=== PATIENT | female | born 1965 | race Caucasian/White ===

== ENCOUNTER 2021-04-17 11:16 | Outpatient (REF) | payer MEDICAID, SELFPAY ==
--- NOTE | ~2021-04-17 | XR_ITS ---
EXAMINATION: XR CERVICAL SPINE CLINICAL INFORMATION: Neck pain COMPARISON: None TECHNIQUE: 6 views of the cervical spine, including bilateral oblique views, were obtained. FINDINGS: Bone alignment is normal. No fracture or dislocation is seen. There is degenerative spondylosis and degenerative disc disease from C4-C5 to C6-C7. There is right-sided neuroforaminal narrowing from bony osteophyte from C4-C5 to C6-C7. There is left-sided neuroforaminal narrowing from bony osteophyte at C3-C4. Prevertebral soft tissues are normal. XR/XR cervical spine min 6V IMPRESSION: Degenerative changes.
--- NOTE | ~2021-04-17 | XR_ITS ---
EXAMINATION: XR SHOULDER, LEFT CLINICAL INFORMATION: Pain COMPARISON: None TECHNIQUE: AP external rotation, Grashey, scapular Y, and axillary views of the left shoulder. FINDINGS: The bones and soft tissues are normal. No fracture. Glenohumeral and acromioclavicular alignment is anatomic with normal joint space. No abnormal soft tissue calcifications. XR/XR shoulder LT min 2V IMPRESSION: Normal left shoulder.
--- NOTE | ~2021-04-17 | XR_ITS ---
EXAMINATION: XR HIP, RIGHT CLINICAL INFORMATION: Right hip pain. COMPARISON: None TECHNIQUE: Two views of the right hip. FINDINGS: There is severe right hip arthritis with joint space narrowing and osteophyte formation. The right iliac bone is normal-appearing. Peripherally this appears slightly lucent. More centrally this appears heterogeneous in attenuation with lucent and sclerotic areas.. Some of this may be artifactual due to overlying bowel gas. Follow-up pelvic x-ray recommended. Soft tissues about the hip are unremarkable. XR/XR hip RT min 2V IMPRESSION: Severe right hip arthritis. Abnormal appearing right iliac bone. Some of this may be artifactual due to overlying bowel gas. Follow-up pelvis x-ray recommended.
== END 2021-04-17 11:17 | disposition home or self-care (01) ==
LOC: HO.XRAY 11:16
PROVIDERS: Absent Provider Student in an Organized Health Care Education/Training Program; PCP Student in an Organized Health Care Education/Training Program; Visit Provider Internal Medicine
DX: M54.2 Cervicalgia (principal); M25.551 Pain in right hip; M25.512 Pain in left shoulder
CPT/HCPCS: 72052; 73030; 73502

== ENCOUNTER 2021-05-01 08:06 | Outpatient (REF) | payer MEDICAID, SELFPAY ==
--- NOTE | ~2021-05-01 | XR_ITS ---
EXAMINATION: XR PELVIS CLINICAL INFORMATION: Hip pain. COMPARISON: Right hip radiographs dated 04/17/2021. TECHNIQUE: AP view of the pelvis. FINDINGS: Severe right hip joint space narrowing with mild bony remodeling. Prominent subchondral sclerosis and subchondral cystic change with large marginal osteophytes. Cortical irregularity through the right iliac, which could represent the sequela of remote trauma. Tiny left hip marginal osteophytes. No acute fracture or dislocation. XR/XR pelvis 1-2V IMPRESSION: Severe right hip osteoarthritis with mild bony remodeling and large marginal osteophytes. Cortical irregularity throughout the right iliac, which could represent the sequela of prior trauma.
== END 2021-05-01 08:07 | disposition home or self-care (01) ==
LOC: HO.HOSX 08:06
PROVIDERS: Visit Provider Physician Assistant
DX: M16.51 Unilateral post-traumatic osteoarthritis, right hip (principal); T14.90XS Injury, unspecified, sequela; M25.551 Pain in right hip
CPT/HCPCS: 72170; 99202

== ENCOUNTER → 2021-05-16 08:59 | Outpatient (BNVA) | payer MEDICAID, SELFPAY | PROVIDERS: PCP Student in an Organized Health Care Education/Training Program; Visit Provider Orthopaedic Surgery | DX: M16.51 Unilateral post-traumatic osteoarthritis, right hip (principal) | CPT/HCPCS: 99212 ==

== ENCOUNTER → 2021-08-19 10:44 | Outpatient (BNVA) | payer MEDICAID, SELFPAY | PROVIDERS: PCP Student in an Organized Health Care Education/Training Program; Visit Provider Orthopaedic Surgery ==

== ENCOUNTER → 2021-08-22 13:12 | Outpatient (BNVA) | payer MEDICAID, SELFPAY | PROVIDERS: PCP Student in an Organized Health Care Education/Training Program; Referring Provider Orthopaedic Surgery; Visit Provider Internal Medicine | DX: Z01.810 Encounter for preprocedural cardiovascular examination (principal); I44.4 Left anterior fascicular block; I10 Essential (primary) hypertension; R01.1 Cardiac murmur, unspecified | CPT/HCPCS: 99202 ==

== ENCOUNTER → 2021-08-28 07:42 | Outpatient (REF) | payer MEDICAID, SELFPAY ==
--- NOTE | ~2021-08-28 | NM_ITS ---
Myocardial perfusion study Indication: Preoperative cardiovascular risk stratification Technique: The patient was brought in for a Lexiscan perfusion study on 08/28/2021. Patient performed low-level exercise and was injected 0.4 mg of Lexiscan intravenously. Within a minute of injection, 25 mCi of sestamibi was given intravenously. Images were obtained using the SPECT gamma camera interlaced with the gating device. Images were obtained in supine position. Resting perfusion study was performed on 08/29/2021. Patient was administered 25 mCi of sestamibi intravenously at rest. Images were then obtained in supine position. Images obtained with and without CT attenuation. Total DLP 92 mGy-cm. Images were processed with the software and compared side to side in short axis, horizontal long axis and vertical long axis views. Findings: The stress perfusion study showed non attenuated images show mildly reduced uptake in the inferior wall of the LV myocardium. Remainder of the inferior attenuation showed mildly reduced uptake distal anterior and apex of the LV myocardium.. The gated study shows normal LV systolic function with calculated LVEF of 72%. LV cavity is normal in size. The gated study shows normal systolic wall thickening and contraction of segments. Resting study shows non attenuated images show moderately reduced uptake in the inferior wall of the LV myocardium. Remainder of the LV myocardium is normally perfused. Attenuation corrected images show mildly to moderately reduced uptake in the inferior wall of the LV myocardium.. Gating at rest reveals normal systolic wall motion with ejection fraction at 71%. The findings are consistent with no reversible defect most likely normal myocardial perfusion. NM/NM cardiolite stress test Impression: 1. Myocardial perfusion imaging study shows likely normal myocardial perfusion 2. Gated LVEF is 72% 3. Transient ischemic dilatation not present EKG is nondiagnostic for ischemia
--- NOTE | 2021-08-28 07:46 | CA_ITS ---
Transthoracic Echocardiogram Patient (Last, First, Middle): Mary Black, Gender: Female Date of : 1965 Age: 56 Procedure Date: 08/28/2021 Procedure Type: Transthoracic Echocardiogram Location: OP Height: 165.1 cm Weight: 81.65 kg BSA: 1.89 m2 Heart Rate: bpm BP: 122 / 80 mmHg Head Up Operator Helper: JOBY Referring MD: Kang Azevedo MD Symptoms: Z01.810 - Encounter for preprocedural cardiovascular exam... Study Quality: Fair ECG Rhythm: Sinus Conclusions: - The left ventricular systolic function is normal. The calculated ejection fraction is 67% by biplane method. - Basal inferior wall appears hypokinetic in some views. - There is mildly decreased right ventricular systolic function. - No obvious valvular pathology seen on this study. Findings Left Ventricle Normal left ventricular cavity size. There is mildly increased left ventricular wall thickness. The left ventricular systolic function is normal. The calculated ejection fraction is 67% by biplane method. There is no evidence of regional wall motion abnormalities. E/E prime ratio is between 8 and 15 consistent with indeterminate filling pressures. Evidence suggests grade I (mild) diastolic dysfunction. Basal inferior wall appears hypokinetic in some views. Right Ventricle Normal right ventricular cavity size. There is mildly decreased right ventricular systolic function. Atria Both atria are normal in size. Aortic Valve There is a normal trileaflet aortic valve. There is no aortic valve stenosis. There is no aortic valve regurgitation. Mitral Valve The mitral valve appears normal. There is trace mitral valve regurgitation. There is no mitral valve stenosis. Pulmonic Valve The pulmonic valve was not well visualized. Tricuspid Valve Normal tricuspid valve structure. There is trace tricuspid valve regurgitation. The pulmonary artery systolic pressure is normal. Great Vessels The aortic annulus, sinuses of valsalva, asc aorta, and aortic arch are normal in size. Venous The inferior vena cava is normal in size and collapses greater than 50% with inspiration. Pericardium/Pleural There is no evidence of pericardial effusion. Prior Study Comparison No prior study available for comparison. Recommendations, Care & Conclusions No obvious valvular pathology seen on this study. Measurements 2D Linear Measurements IVSd: 1.05 0.6-0.9/0.6-1.0 cm LVIDd: 3.27 3.9-5.3/4.2-5.9 cm LVIDd Index: 1.73 2.4-3.2/2.2-3.1 cm/m2 LVIDs: 2.23 2.0-3.6 cm LVPWd: 1.04 0.7-1.1 cm Ao Root: 2.80 2.1-3.5 cm LA Diam: 3.70 2.7-3.8/3.0-4.0 cm LAIDs Index: 1.96 1.5-2.3 cm/m2 LV Mass: 123.79 67-162/88-224 g LV Mass Index: 65.50 43-95/49-115 g/m2 LVOT Diam: 2.00 3.0+(-)1.3 cm 2D Systolic Function EF 4C: 66.10 >55% EF 2C: 69.50 >55% EF BiP: 67.10 >55% Mitral Valve MV Pk E: 0.69 MV PK A: 0.85 MV Decel Time: 308.00 E/A: 0.80 E'Lateral: 9.14 E'Medial: 4.79 E/E' Med: 14.30 E/E' Lat: 7.50 PHT: 90.00 MVA PHT: 2.44 Decel Stewart: 2.22 Aortic Valve AoV Pk Dave: 1.42 AoV Mn Dave: 1.01 AoV VTI: 0.26 AoV Pk Grad: 8.00 Aov Mn Grad: 5.00 DANIS Cont.VTI: 3.59 LVOT LVOT Pk Dave: 1.37 LVOT Mn Dave: 1.02 LVOT VTI: 0.30 LVOT Pk Grad: 8.00 LVOT Mn Grad: 5.00 LVOT Diam: 2.00 LVOT Area: 3.14 Diastolic Function MV Pk E: 0.69 MV Pk A: 0.85 E/A: 0.80 E'Medial: 4.79 E/E' Med: 14.30 E' Laterial: 9.14 E/E' Lat: 7.50 Right Ventricle TAPSE (mm): 1.46 TVS' Dave: 7.51 Tricuspid Valve TR Pk Dave: 2.20 TR Pk Grad: 19.00 RA Press: 3.00 RVSP: 22.00 Great Vessels Aorta Ao Root-2D: 2.80 2.0-3.7 cm Ao Asc: 3.60 2.1-3.4 cm Ao Arch: 3.00 Updated in Other Vendor System with Status of Final Kang Azevedo MD electronically signed on 08/30/2021 12:52:55 PM with status of Final
--- NOTE | 2021-08-28 07:46 | CA_ITS ---
Acquisition Time: 2021-08-28 08:15:37 Total Exercise Time: 00:02:00 Test Indications: PREOP Medications: SEE CHART Protocol: LEXISCAN Max HR: 101 BPM 61% of Pred: 163 BPM Max BP: 112/070 mmHG Max Work Load: 1.0 METS Pharmacological stress test with Lexiscan injection, while sitting and kicking her legs, without anginal symptoms, without arrythmia, with normotensive response to injection, with nondiagnostic EKG for ischemia. Nuclear images pending. Referred By: Kang Azevedo Overread By: GIACOMO VELA
== END ==
LOC: HO.CARD 07:42
PROVIDERS: Visit Provider Internal Medicine
DX: Z01.810 Encounter for preprocedural cardiovascular examination (principal); R01.1 Cardiac murmur, unspecified
CPT/HCPCS: 78452; 93017; 93306; A9500; J0280; J2785

== ENCOUNTER → 2021-08-29 11:20 | Outpatient (BNVA) | payer MEDICAID, SELFPAY | PROVIDERS: Visit Provider Physician Assistant | DX: M16.51 Unilateral post-traumatic osteoarthritis, right hip (principal) | CPT/HCPCS: 99212 ==

== ENCOUNTER 2021-09-09 11:29 | Inpatient (IN) | payer MEDICAID, SELFPAY ==
[2021-08-29 13:02] VITALS: BMI 29.7
[2021-08-29 13:29] VITALS: BP 111/62; PULSE 92; RESP 20; O2SAT 97
[2021-08-29 15:08] LABS: MANUAL DIFF FLAG NO
[2021-08-29 15:13] LABS: MRSA Nasal PCR NEGATIVE (Negative); SA Nasal PCR POSITIVE (Negative)
[2021-08-29 15:26] LABS: Basophils Percent Auto 0.7 % (0-2); Eosinophils Percent Auto 0.5 % (0-4); Hematocrit 43.5 % (37.0-47.0); Hemoglobin 14.6 g/dl (12.0-16.0); Imm Gran Abs Auto 0.01 X10*3/uL (0.00-0.03); Imm Gran Pct Auto 0.2 % (0.0-0.4); Lymphocytes Absolute Auto 1.6 X10*3/uL (1.2-4.9); Lymphocytes Percent Auto 25.7 % (20-40); Mean Corpuscular HGB Conc 33.6 g/dl (31.0-35.0); Mean Corpuscular Hemoglobin 30.5 pg (27.0-33.0); Mean Platelet Volume 10.1 fL (9.4-12.3); Monocytes Absolute Auto 0.4 X10*3/uL (0.1-1.2); Monocytes Percent Auto 6.3 % (2-11); Neutrophils Percent Auto 66.6 % (45-73); Platelet Count 137 X10*3/uL (160-400); Red Blood Count 4.78 X10*6/uL (4.20-5.50); Red Cell Distribution Width 14.9 % (11.0-16.0)
[2021-08-29 15:47] LABS: Anion Gap 15 (12-20); Blood Urea Nitrogen 15 mg/dL (9-16); Carbon Dioxide 25 mmol/L (22-29); Chloride 102 mmol/L (96-108); Creatinine Clr Calc Pharmacy 52.2; Estimated Glomerular Filt Rate 44; Sodium 138 mmol/L (135-145)
--- NOTE | 2021-09-02 08:43 | P.CONAN_ITS ---
Documented by User: Becky Ochoa NP 09/02/21 08:48 HPI - Anesthesia Eval Consult details Narrative: 56yo F for Right Hip Total Replacement PCP cleared Cardiac cleared: Myocardial perfusion imaging with normal perfusion. However, echocardiogram with possible basal inferior hypokinesis; mildly diminished RV function. Hence RCA disease not completely excluded. May proceed with hip surgery as planned. Low to intermediate cardiac risk. Can get elective coronary CTA. [facility], LAT[facility] Active Problems Active Problems: All Active Problems (Updated 08/30/21 @ 13:42 by Mariah mejia NP-C) Abnormal finding on echocardiogram (Acute) Post-traumatic osteoarthritis of right hip (Acute) Cardiac murmur (Acute) Preoperative cardiovascular examination (Acute) LAFB (left anterior fascicular block) (Acute) Essential hypertension (Acute) Past Medical History Medical History (Updated 08/30/21 @ 13:42 by KARIS Ramirez) Aneurysm COVID-19 vaccine series completed Essential hypertension Heart murmur Family History Family History (Updated 08/22/21 @ 13:30 by Sandra Ramos Michelle) Father Heart disease Mother No problems noted. Surgical History Surgical History (Updated 08/29/21 @ 13:00 by Marina Easton RN) History of hip surgery Hx of brain surgery Hx of skin graft Social History Social History (Updated 08/28/21 @ 09:34 by Marina Easton RN) Household Members Other:: & grandson Are you a primary health care technician to a significant other at home: No Do you presently have visiting nurse or other home services: No Patient Tobacco Use Status: Former Tobacco user Quit Date: 07/2021 Tobacco use type: Cigarette Smoked in Last 30 Days: No Patient Interested in Nicotine Replacement: Yes Use of substances other than those prescribed or required for medical reasons: Yes Substance Use Frequency: Daily Have you been hit, kicked, punched, or otherwise hurt by someone within the past year? If so, by whom?: No Are you DNR?: No Advance Directives: No (official HCP- is primary contact) Advance Directives Information Provided: Yes Advance Directives on File: No Recently lost weight without trying: No Eating poorly because of decreased appetite: No Nutrition Risks: No Nutritional Risk Patient : No : No Poor oral hygiene: No (upper full denture) Current occupational status: unemployed Current occupation: rt hand Meds Allergies Allergy/AdvReac Type Severity Reaction Status Date / Time No Known Allergies Allergy Verified 08/29/21 11:49 Home Medications Medication Instructions Recorded Confirmed Last Taken Type alprazolam 0.25 mg tablet (Xanax) 0.25 mg PO DAILY 05/01/21 08/28/21 09/09/21 History buspirone 5 mg tablet 5 mg PO BID 05/01/21 08/28/21 09/09/21 History escitalopram oxalate 5 mg tablet 5 mg PO DAILY 05/01/21 08/28/21 09/09/21 History (Lexapro) hydrochlorothiazide 12.5 mg capsule 12.5 mg PO DAILY 05/01/21 08/28/21 Unknown History lisinopril 40 mg tablet 40 mg PO DAILY 08/22/21 08/28/21 Unknown History Exam Exam Date and Time: September 02, 2021 0843 Height,Weight and Vital Signs: Height 5 ft 5 in Weight 81.193 kg Last Vital Signs Pulse 92 08/29/21 13:29 Resp 20 08/29/21 13:29 BP 111/62 08/29/21 13:29 Pulse Ox 97 08/29/21 13:29 Pertinent Lab Results Pertinent Lab Results: Laboratory Tests 08/29/21 08/29/21 08/29/21 13:10 14:55 15:06 WBC 6.0 RBC 4.78 Hgb 14.6 Hct 43.5 MCV 91.0 MCH 30.5 MCHC 33.6 RDW 14.9 Plt Count 137 L MPV 10.1 Immature Gran % (Auto) 0.2 Neut % (Auto) 66.6 Lymph % (Auto) 25.7 Porter % (Auto) 6.3 Eos % (Auto) 0.5 Baso % (Auto) 0.7 Lymph # (Auto) 1.6 Porter # (Auto) 0.4 Eos # (Auto) 0.0 Baso # (Auto) 0.0 Abs Immat Gran (auto) 0.01 Absolute Neuts (auto) 4.0 Absolute Nucleated RBC 0.000 Nucleated RBC % (auto) 0.0 Sodium Potassium Chloride Carbon Dioxide Anion Gap BUN Creatinine Estim Creat Clear Calc Estimated GFR Nasal Screen MRSA (PCR) NEGATIVE Nasal S. aureus Screen POSITIVE A Nasal MRSA/S.aureus Interp SEE NOTE Blood Type A Positive Antibody Screen NEGATIVE 08/29/21 15:06 WBC RBC Hgb Hct MCV MCH MCHC RDW Plt Count MPV Immature Gran % (Auto) Neut % (Auto) Lymph % (Auto) Porter % (Auto) Eos % (Auto) Baso % (Auto) Lymph # (Auto) Porter # (Auto) Eos # (Auto) Baso # (Auto) Abs Immat Gran (auto) Absolute Neuts (auto) Absolute Nucleated RBC Nucleated RBC % (auto) Sodium 138 Potassium 4.0 Chloride 102 Carbon Dioxide 25 Anion Gap 15 BUN 15 Creatinine 1.25 Estim Creat Clear Calc 52.2 Estimated GFR 44 Nasal Screen MRSA (PCR) Nasal S. aureus Screen Nasal MRSA/S.aureus Interp Blood Type Antibody Screen Narrative Narrative: EKG 08/21/21 SR @ 63 Marked LAD, c/w LAFB Slight IV conduction delay ECHO 08/2021 Conclusions: - The left ventricular systolic function is normal.? The ? calculated ejection fraction is 67% by biplane method. ? - Basal inferior wall appears hypokinetic in some views. ? - There is mildly decreased right ventricular systolic function. - No obvious valvular pathology seen on this study.?? NM cardiolite stress test 08/2021 Impression: ? 1.? Myocardial perfusion imaging study shows likely normal myocardial perfusion 2.? Gated LVEF is 72% 3. Transient ischemic dilatation not present ? EKG is nondiagnostic for ischemia Assessment and Plan Assessment Anesthesia Assessment: Chart Reviewed Documented by User: Leonardo Lloyd 09/09/21 16:45 HPI - Anesthesia Eval Consult details Narrative: 56yo F for Right Hip Total Replacement PCP cleared Cardiac cleared: Myocardial perfusion imaging with normal perfusion. However, echocardiogram with possible basal inferior hypokinesis; mildly diminished RV function. Hence RCA disease not completely excluded. May proceed with hip surgery as planned. Low to intermediate cardiac risk. Can get elective coronary CTA. right ankle swelling , patient attributes it to stopping HCTZ . [facility] Past Medical History Medical History (Updated 08/30/21 @ 13:42 by KARIS Ramirez) Aneurysm COVID-19 vaccine series completed Essential hypertension Heart murmur Functional capacity: independent ambulation Family History Family History (Updated 08/22/21 @ 13:30 by Sandra Ramos [facility]) Father Heart disease Mother No problems noted. Family history of problems with anesthesia: No Surgical History Surgical History (Updated 08/29/21 @ 13:00 by Marina Easton RN) History of hip surgery Hx of brain surgery Hx of skin graft History of Problems with Anesthesia: No Social History Social History (Updated 08/28/21 @ 09:34 by Marina Easton RN) Household Members Other:: & grandson Are you a primary health care technician to a significant other at home: No Do you presently have visiting nurse or other home services: No Patient Tobacco Use Status: Former Tobacco user Quit Date: 07/2021 Tobacco use type: Cigarette Smoked in Last 30 Days: No Patient Interested in Nicotine Replacement: Yes Use of substances other than those prescribed or required for medical reasons: Yes Substance Use Frequency: Daily Have you been hit, kicked, punched, or otherwise hurt by someone within the past year? If so, by whom?: No Are you DNR?: No Advance Directives: No (official HCP- is primary contact) Advance Directives Information Provided: Yes Advance Directives on File: No Recently lost weight without trying: No Eating poorly because of decreased appetite: No Nutrition Risks: No Nutritional Risk Patient : No : No Poor oral hygiene: No (upper full denture) Current occupational status: unemployed Current occupation: rt hand Meds Allergies Allergy/AdvReac Type Severity Reaction Status Date / Time No Known Allergies Allergy Verified 08/29/21 11:49 Home Medications Medication Instructions Recorded Confirmed Last Taken Type alprazolam 0.25 mg tablet (Xanax) 0.25 mg PO DAILY 05/01/21 08/28/21 09/09/21 History buspirone 5 mg tablet 5 mg PO BID 05/01/21 08/28/21 09/09/21 History escitalopram oxalate 5 mg tablet 5 mg PO DAILY 05/01/21 08/28/21 09/09/21 History (Lexapro) hydrochlorothiazide 12.5 mg capsule 12.5 mg PO DAILY 05/01/21 08/28/21 Unknown History lisinopril 40 mg tablet 40 mg PO DAILY 08/22/21 08/28/21 Unknown History Exam Airway Mallampati Class: IV (Thick tongue ) TM Dist: >3cm Neck ROM: Full Denture: Upper Partial: Lower Loose/Missing/Broken Teeth: Yes (Chipped , poor dentation ) Heart: rrr Lungs: bl breath sounds Assessment and Plan Assessment Anesthesia Assessment: Anesthesia Plan Discussed Final Anesthetic Review Family History of Problems with Anesthesia: No History of Problems with Anesthesia: No NPO: Yes ASA Class: III Final Preanesthetic Review: Meds/Allgs Chart Reviewed and Consent Obtained/Reviewed Patient Risk: High Procedure Risk: Intermediate Anesthetic Plan Anesthetic Plan: GA Disposition: Standard PACU
[2021-09-09] VITALS (15 sets, daily range): BP systolic 108–137; BP diastolic 61–86; PULSE 57–81; RESP 14–20; TEMP 36.1–36.7; O2SAT 94–100
--- NOTE | ~2021-09-09 | XR_ITS ---
EXAMINATION: XR PELVIS CLINICAL INFORMATION: Right total hip replacement COMPARISON: Previous x-ray April 2021 TECHNIQUE: AP view of the pelvis. FINDINGS: There is a new right hip replacement in satisfactory position. No fracture or dislocation is seen. Bones of the visualized pelvis are unremarkable. There are postoperative changes to the soft tissues. XR/XR pelvis 1-2V IMPRESSION: Satisfactory appearance of right hip replacement.
[2021-09-09] MEDS: oxyCODONE HCl ER 10 MG TAB.ER.12H PO ×2 (11:26→20:37)
--- NOTE | 2021-09-09 11:39 | PC.NURSE ---
pt has 3 rings on right hand and 2 rings on left hand unable to remove. pt educated on importance of all jewelry being removed and risk of possible burn to area of metal if cauterizing tool is needed during procedure. pt understandable and wishes to continue with procedure knowing risks.
[2021-09-09 11:42] LABS: COVID-19 Test Negative (Negative)
[2021-09-09] MEDS: Lactated Ringers 1,000 ML 100 ML IVCONT (11:47)
--- NOTE | 2021-09-09 13:02 | MHC.SHP ---
Pre-Procedural Eval Section A Date of Service: 09/09/21 The patient is an INPATIENT: No Changes since office visit: Yes Patient answered all questions; No Cold of Flu in the past 2 weeks, No New Medical Problems and No Changes in Medication The History & Physical has been completed within 30 days and I have reviewed it.: Yes Section B Chief Complaint: RT YENNY Allergies: Allergies Allergy/AdvReac Type Severity Reaction Status Date / Time No Known Allergies Allergy Verified 08/29/21 11:49 Plan I have reviewed the history and physical and performed a pertinent physical examination on my patient. No changes have occurred unless specified.
--- NOTE | 2021-09-09 15:02 | PM.OP ---
Brief Operative Note Date of Service: 09/09/21 Pre-op diagnosis: right hip OA Post-op diagnosis: same Procedure: Right YENNY Implants: Diana Trident 2 #52 with 20 deg post lip Accolade#21 #3 132 deg with + 5 36 ceramic head Surgeon: Magnus Abarca MD Anesthesia: GETA and local Was an Financial Analysis Manager used for this Procedure?: Yes Financial Analysis Manager: Aniceto Evans Estimated blood loss (mL): 300 IV fluids (mL): 1,000 Pathology: other Condition: stable Disposition: PACU
[2021-09-09] MEDS: fentaNYL citrate/PF 100 MCG/2 ML VIAL 25 MCG IVPUSH ×4 (15:35→15:50)
[2021-09-09] MEDS: HYDROmorphone HCl 0.5 MG/0.5 ML SYRINGE 0.25 MG IVPUSH ×2 (16:20→16:25)
[2021-09-09] MEDS: Dextrose 5 % and 0.45 % NaCl 1,000 ML 80 ML IVCONT (16:20)
[2021-09-09] MEDS: oxyCODONE HCl Immed Release 5 MG TABLET 10 MG PO (17:42)
--- NOTE | 2021-09-09 18:29 | HO.PM.IMCN ---
History of Present Illness Data of Consult Service Date: 09/09/21 Requesting physician: Magnus Abarca Primary Care Provider: Lynda Jacobsen MD [facility] Reason for consult: History of brain aneurysm and heart murmur 56-year-old female patient with known history of hypertension , status post skin graft, status post clipping of brain aneurysm > than 10 years ago, evaluated by Cardiology prior to elective hip surgery, had an echocardiogram that showed basal inferior hypokinesis and mildly diminished right ventricular function therefore underwent Lexiscan stress test that showed no evidence of ischemia, patient underwent right total arthroplasty today, postprocedure patient complaining of right hip pain otherwise denies nausea, no vomiting, no headache no dizziness, denies chest pain no palpitation, eating supper. Review of Systems Review of Systems: General no headache, no dizziness no fever chills. CVS no chest pain, no palpitation. Respiratory no cough, no sob Gastrointestinal no nausea, no vomiting, no abdominal pain Skin no rash Yes all other systems are reviewed and are negative [facility] Medical History Aneurysm COVID-19 vaccine series completed Essential hypertension Heart murmur Functional capacity: independent ambulation Family History Father Heart disease Mother No problems noted. Surgical History History of hip surgery Hx of brain surgery Hx of skin graft Social History Household Members Other:: & grandson Are you a primary career technical education instructor to a significant other at home: No Do you presently have visiting nurse or other home services: No Patient Tobacco Use Status: Former Tobacco user Quit Date: 07/2021 Tobacco use type: Cigarette Smoked in Last 30 Days: No Patient Interested in Nicotine Replacement: Yes Use of substances other than those prescribed or required for medical reasons: Yes Substance Use Frequency: Daily Currently Displaying Signs/Symptoms of Drug Intoxication Withdrawal: No Have you been hit, kicked, punched, or otherwise hurt by someone within the past year? If so, by whom?: No Are you DNR?: No Advance Directives: No (official HCP- is primary contact) Advance Directives Information Provided: Yes Advance Directives on File: No Recently lost weight without trying: No Eating poorly because of decreased appetite: No Nutrition Risks: No Nutritional Risk Patient : No : No Poor oral hygiene: No (upper full denture) Current occupational status: unemployed Current occupation: rt hand Meds Allergies Allergy/AdvReac Type Severity Reaction Status Date / Time No Known Allergies Allergy Verified 08/29/21 11:49 Active Medications: Current Medications Acetaminophen (Acetaminophen 325 Mg Tablet) 650 mg PO Q6H PRN PRN Reason: Pain, Mild (Pain Scale 1-3) Celecoxib (Celecoxib 200 Mg Capsule) 200 mg PO BID [facility] Docusate Sodium (Docusate Sodium 100 Mg Capsule) 100 mg PO BID [facility] Hydromorphone HCl (Hydromorphone Hcl 1 Mg/Ml Syringe) 0.25 mg IVPUSH Q3H PRN; Protocol PRN Reason: Pain, Severe (Pain Scale 7-10) Dextrose/Sodium Chloride (D51/2ns) 1,000 mls @ 80 mls/hr IVCONT .[id number] [facility] Last Admin: 09/09/21 16:20 Dose: 80 mls/hr Documented by: Cefazolin Sodium/Dextrose (Ancef) 2 gm in 50 mls @ 100 mls/hr IV POSTOP [facility] Ondansetron HCl (Ondansetron Hcl 4 Mg/2 Ml Vial) 4 mg IVPUSH Q8H PRN PRN Reason: Nausea and Vomiting Oxycodone HCl (Oxycodone Hcl Immed Release 5 Mg Tablet) 10 mg PO Q4H PRN PRN Reason: Pain, Moderate (Pain Scale 4-6 Last Admin: 09/09/21 17:42 Dose: 10 mg Documented by: Oxycodone HCl (Oxycodone Hcl Er 10 Mg Tab.Er.12h) 10 mg PO BID [facility] Sodium Chloride (0.9 % Sodium Chloride Flush 3 Ml Syringe) 3 ml IVFLUSH QSHIFT [facility] Last Admin: 09/09/21 17:37 Dose: Not Given Documented by: Home Medications Medication Instructions Recorded Confirmed Last Taken Type alprazolam 0.25 mg tablet (Xanax) 0.25 mg PO DAILY 05/01/21 08/28/21 09/09/21 History buspirone 5 mg tablet 5 mg PO BID 05/01/21 08/28/21 09/09/21 History escitalopram oxalate 5 mg tablet 5 mg PO DAILY 05/01/21 08/28/21 09/09/21 History (Lexapro) hydrochlorothiazide 12.5 mg capsule 12.5 mg PO DAILY 05/01/21 08/28/21 Unknown History lisinopril 40 mg tablet 40 mg PO DAILY 08/22/21 08/28/21 Unknown History Physical Exam Vital Signs and Narrative: Vital Signs: Last Vital Signs Temp 98.1 F 09/09/21 16:51 Pulse 67 09/09/21 16:51 Resp 17 09/09/21 16:51 BP 135/86 09/09/21 16:51 Pulse Ox 96 09/09/21 16:51 BMI result Body Mass Index 29.7 General awake alert in acute distress due to pain Neck supple no JVD. CVS regular rate rhythm Respiratory lungs clear to auscultation, no respiratory distress, no wheeze, no rhonchi. Gastrointestinal abdomen soft, nontender, bowel sounds audible, Extremities no edema. Right hip dressing in place no drainage noted Neuro nonfocal Skin no rash Results Labs CBC and Chem 7: 08/29/21 15:06 08/29/21 15:06 Labs: Laboratory Results - last 24 hr 09/09/21 09/09/21 10:52 11:37 COVID-19 (STACIE) Negative COVID-19 Clin Com See Note Blood Type A Positive Antibody Screen NEGATIVE Imaging Radiologist's Impressions: Impressions Pelvis X-Ray 09/09/21 15:15 IMPRESSION: Satisfactory appearance of right hip replacement. Assessment and Plan (1) Essential hypertension: Status: Acute (2) Post-traumatic osteoarthritis of right hip: Status: Acute 56-year-old female patient admitted for elective right total hip arthroplasty History of brain aneurysm status post clipping in 2008 patient at present is asymptomatic with no headache no dizziness stable blood pressure No further workup or evaluation needed. History of cardiac murmur recently evaluated by junior web developer status post echocardiogram and Lexiscan stress test, echo showed no acute valvular heart disease, Lexiscan stress test negative No further workup warranted. Status post right total hip arthroplasty postoperative day 0 Pain management and DVT prophylaxis as per orthopedic surgeon History of hypertension stable blood pressure continue home medication Will sign off call us with any acute medical issues.
[2021-09-09] MEDS: Acetaminophen 325 MG TABLET 650 MG PO (19:31)
[2021-09-09] MEDS: Celecoxib 200 MG CAPSULE PO (19:31)
[2021-09-09] MEDS: Docusate Sodium 100 MG CAPSULE PO (19:31)
[2021-09-09] MEDS: 0.9 % Sodium Chloride Flush 3 ML SYRINGE IVFLUSH (19:32)
[2021-09-09] MEDS: ceFAZolin Sodium/Dextrose,Iso 2 GM/50 ML PIGGYBACK IV (20:38)
[2021-09-09] MEDS: HYDROmorphone HCl 1 MG/ML SYRINGE 0.25 MG IVPUSH (23:36)
[2021-09-10] VITALS (10 sets, daily range): BP systolic 102–134; BP diastolic 53–70; PULSE 64–73; RESP 16–19; TEMP 36.3–37.1; O2SAT 92–96
[2021-09-10] MEDS: HYDROmorphone HCl 1 MG/ML SYRINGE 0.25 MG IVPUSH ×2 (03:15→06:31)
[2021-09-10] MEDS: Dextrose 5 % and 0.45 % NaCl 1,000 ML 80 ML IVCONT (03:15)
[2021-09-10 05:58] LABS: MANUAL DIFF FLAG NO
[2021-09-10 06:04] LABS: Hematocrit 31.1 % (37.0-47.0); Imm Gran Abs Auto 0.04 X10*3/uL (0.00-0.03); Imm Gran Pct Auto 0.5 % (0.0-0.4); Lymphocytes Absolute Auto 0.6 X10*3/uL (1.2-4.9); Lymphocytes Percent Auto 6.9 % (20-40); Mean Corpuscular HGB Conc 32.2 g/dl (31.0-35.0); Mean Corpuscular Volume 93.4 fL (80.0-98.0); Mean Platelet Volume 9.6 fL (9.4-12.3); Monocytes Absolute Auto 0.5 X10*3/uL (0.1-1.2); Monocytes Percent Auto 5.4 % (2-11); Neutrophils Absolute Auto 7.7 x10*3/uL (2.0-8.3); Neutrophils Percent Auto 87.2 % (45-73); Platelet Count 151 X10*3/uL (160-400); Red Blood Count 3.33 X10*6/uL (4.20-5.50); Red Cell Distribution Width 14.6 % (11.0-16.0); White Blood Count 8.8 X10*3/uL (4.8-10.8)
[2021-09-10 06:26] LABS: Anion Gap 12 (12-20); Blood Urea Nitrogen 10 mg/dL (9-16); Calcium 8.4 mg/dL (8.4-10.2); Carbon Dioxide 31 mmol/L (22-29); Chloride 102 mmol/L (96-108); Creatinine Clr Calc Pharmacy 51.9; Estimated Glomerular Filt Rate 44; Glucose Fasting 108 mg/dL (60-99); Potassium 4.2 mmol/L (3.3-5.1); Sodium 141 mmol/L (135-145)
--- NOTE | 2021-09-10 07:41 | PM.PNORT ---
Subjective Subjective Date of Service: 09/10/21 Interval history: POD 1 s/p RT YENNY No overnight events resting in bed, PT in room to work with Patient she states pain is tolerable denies sob, cp, palpitations Physical Exam Vital Signs: Vital Signs: Last Vital Signs Temp 98.7 F 09/10/21 02:49 Pulse 66 09/10/21 02:49 Resp 16 09/10/21 02:49 BP 116/58 L 09/10/21 02:49 Pulse Ox 96 09/10/21 02:49 BMI result Body Mass Index 29.7 Const: General: cooperative, healthy appearing and no acute distress Resp: Effort & Inspection: normal respiratory effort and able to speak in complete sentences Cardio: Rate: regular rate Peripheral pulses: Peripheral pulses 2+ throughout GI: Palpation (GI): Soft to palpation Skin: General skin exam: no rashes or lesions noted Extrem: Other: bandage clean dry and intact. No erythema or effusion. Calf supple nontender. Neurovascularly intact. Procedures Date of Service Date of Service: 09/10/21 Progress Note: A&P Assessment and plan (1) History of total right hip replacement: Status: Acute Assessment and Plan: Continue pain mgmnt Begin Aspirin for dvt ppx begin PT .OT for RT yenny posterior precautions Dispo planning-Pending PT eval, pain mgmnt Fall Risk Details Current Medications: Current Medications Acetaminophen (Acetaminophen 325 Mg Tablet) 650 mg PO Q6H PRN PRN Reason: Pain, Mild (Pain Scale 1-3) Last Admin: 09/09/21 19:31 Dose: 650 mg Documented by: Aspirin (Aspirin 325 Mg Tablet) 325 mg PO BID [facility] Celecoxib (Celecoxib 200 Mg Capsule) 200 mg PO BID [facility] Last Admin: 09/09/21 19:31 Dose: 200 mg Documented by: Docusate Sodium (Docusate Sodium 100 Mg Capsule) 100 mg PO BID [facility] Last Admin: 09/09/21 19:31 Dose: 100 mg Documented by: Hydromorphone HCl (Hydromorphone Hcl 1 Mg/Ml Syringe) 0.25 mg IVPUSH Q3H PRN; Protocol PRN Reason: Pain, Severe (Pain Scale 7-10) Last Admin: 09/10/21 06:31 Dose: 0.25 mg Documented by: Dextrose/Sodium Chloride (D51/2ns) 1,000 mls @ 80 mls/hr IVCONT .[id number] [facility] Last Admin: 09/10/21 03:15 Dose: 80 mls/hr Documented by: Cefazolin Sodium/Dextrose (Ancef) 2 gm in 50 mls @ 100 mls/hr IV POSTOP [facility] Last Infusion: 09/09/21 21:43 Dose: Infused Documented by: Ondansetron HCl (Ondansetron Hcl 4 Mg/2 Ml Vial) 4 mg IVPUSH Q8H PRN PRN Reason: Nausea and Vomiting Oxycodone HCl (Oxycodone Hcl Immed Release 5 Mg Tablet) 10 mg PO Q4H PRN PRN Reason: Pain, Moderate (Pain Scale 4-6 Last Admin: 09/09/21 17:42 Dose: 10 mg Documented by: Oxycodone HCl (Oxycodone Hcl Er 10 Mg Tab.Er.12h) 10 mg PO BID [facility] Last Admin: 09/09/21 20:37 Dose: 10 mg Documented by: Sodium Chloride (0.9 % Sodium Chloride Flush 3 Ml Syringe) 3 ml IVFLUSH QSHIFT [facility] Last Admin: 09/10/21 07:09 Dose: Not Given Documented by: Time Spent With Patient Time: Total time spent is greater than 50% in coordination of care (as documented) at patient's floor/unit and/or counseling patient: Time with patient: less than 15 minutes Quality Stroke Does the patient have a stroke diagnosis?: No VTE Prior VTE?: No VTE Risk Level:: Surgical - high VTE Device Contraindication: N/A - Device Ordered VTE Drug Contraindication: N/A - Med Ordered
[2021-09-10] MEDS: Docusate Sodium 100 MG CAPSULE PO ×2 (07:43→21:06)
[2021-09-10] MEDS: oxyCODONE HCl ER 10 MG TAB.ER.12H PO ×2 (07:43→21:07)
[2021-09-10] MEDS: Acetaminophen 325 MG TABLET 650 MG PO ×2 (07:43→16:04)
[2021-09-10] MEDS: Celecoxib 200 MG CAPSULE PO ×2 (07:43→21:20)
[2021-09-10] MEDS: oxyCODONE HCl Immed Release 5 MG TABLET 10 MG PO ×4 (07:44→21:05)
--- NOTE | 2021-09-10 09:10 | PHA.MEDREC ---
Pharmacy Consult ? Medication Reconciliation Pharmacy has completed the medication reconciliation. No remarkable issues, Flory Shine, NehemiasD
--- NOTE | 2021-09-10 09:51 | MHC.CM.PN ---
PATIENT LIVES WITH SPOUSE. SHE HAS A WALKER IN ANTICIPATION OF HER SURGICAL INTERVENTION. PLAN IS DC HOME WITH COUNT INCLUDES THE [facility] FOR HOME P.T. PATIENT CURRENTLY WORKING WITH O.T. AND CASE MANAGEMENT TO RETURN FOR COMPLETION OF ASSESSMENT QUESTIONS
--- NOTE | 2021-09-10 14:04 | W.PM.OPN ---
Operative Note Operative Note Date of Service: 09/09/21 Narrative: Date of Service: 09/09/21 Pre-op diagnosis: right hip OA Post-op diagnosis: same Procedure: Right YENNY Implants: [place] Trident 2 #52 with 20 deg post lip Accolade#21 #3 132 deg with + 5 36 ceramic head Surgeon: Magnus Abarca MD Anesthesia: GETA and local Was an Design Engineering Intern used for this Procedure?: Yes Design Engineering Intern: Aniceto Evans Estimated blood loss (mL): 300 IV fluids (mL): 1,000 Pathology: other Condition: stable Disposition: PACU Procedure in detail: Patient was brought into the operating room and placed in the left lateral decubitus position. All bony prominences were well padded and the limb was prepped and draped in standard sterile fashion. Time-out was called to identify proper site procedure proper surgeon IV antibiotics and 1 g of transaxemic acid were administered. I began by making a curvilinear incision over the posterolateral aspect of the greater trochanter. Dissection was taken down to the tensor fascia which was incised in line with the incision and a Charnley retractor was placed. Cautery was used to maintain hemostasis. A werewolf device was also used. The hip was internally rotated and the external rotators were identified. The vessels were cauterized and a full-thickness capsular/external rotator layer was developed starting just proximal to the piriformis. This layer was tagged and a dull Hohmann retractor was placed underneath the neck in the hip was dislocated. The head was eburnated and deformed. A neck cut was made 1 cm proximal to the lesser trochanter and the head and neck were removed and measured as a 48 on the back table. I started with a 44mm reamer and sequentially reamed up to a size 52 and impacted a 52mm cup at approximately 45 degrees of inclination and 25 degrees of version. I then placed a 20 deg posterior lipped liner and turned my attention to the femur. I identified the piriformis insertion and used this as a starting point for my linden cutter. The medius tendon was protected with a Hibs retractor. I then used a Charnley awl to identify the canal and a curved curette to remove the lateral bone. I irrigated copiously. I then sequentially broached in the patient's natural version to a size #3 and placed my trial implants. Using a trail head I took the hip through range of motion. I was very satisfied with the stability and length. Therefore I removed all instrumentation and copiously irrigated. I placed my final femoral implant and again took the hip through range of motion and was satisfied with the stability and length with a + 5 36 head. The fial head was malleted in place.. I then irrigated for 3 minutes with iodine and placed 1 g of local tranaxemic acid. I then performed a capsular closure with 2.0 fiberwire, Lamberto's fascia with 0 Vicryl, subcuticular with 2-0 Vicryl and the skin with milagro. Patient was placed into a sterile dressing. Radiographs were obtained at the completion of the case and I was satisfied with the component position. Patient was extubated brought to the recovery room in stable condition.
[2021-09-10] MEDS: Aspirin 325 MG TABLET PO ×2 (14:14→21:05)
--- NOTE | 2021-09-10 14:34 | HO.POSTANES ---
Post Anesthesia Evaluation Post Anesthesia Evaluation Vital Signs: Vital Signs Temp Pulse Resp BP Pulse Ox 09/10/21 13:33 72 105/64 95 09/10/21 11:13 97.8 F 72 16 105/64 95 09/10/21 08:03 73 119/64 92 09/10/21 08:00 98.5 F 73 18 119/64 92 09/10/21 02:49 98.7 F 66 16 116/58 L 96 Anesthesia: General Mental Status: Awake Pain Control: Satisfactory Nausea/Vomiting: None Hydration: Adequate Anesthesia-Related Issues: No Anes. Related Issues
[2021-09-10] MEDS: Dextrose 5 % and 0.45 % NaCl 1,000 ML 100 ML IVCONT ×2 (16:04→21:24)
[2021-09-11] MEDS: oxyCODONE HCl Immed Release 5 MG TABLET 10 MG PO ×2 (01:15→06:56)
[2021-09-11] MEDS: HYDROmorphone HCl 1 MG/ML SYRINGE 0.25 MG IVPUSH (02:30)
[2021-09-11 03:49] VITALS: BP 105/51; PULSE 69; RESP 17; TEMP 37.2; O2SAT 94
[2021-09-11 06:42] LABS: Basophils Percent Auto 0.3 % (0-2); Eosinophils Absolute Auto 0.1 X10*3/uL (0.0-0.4); Eosinophils Percent Auto 1.1 % (0-4); Hematocrit 29.2 % (37.0-47.0); Hemoglobin 9.2 g/dl (12.0-16.0); Imm Gran Abs Auto 0.03 X10*3/uL (0.00-0.03); Imm Gran Pct Auto 0.5 % (0.0-0.4); Lymphocytes Absolute Auto 1.3 X10*3/uL (1.2-4.9); MANUAL DIFF FLAG NO; Mean Corpuscular HGB Conc 31.5 g/dl (31.0-35.0); Mean Corpuscular Hemoglobin 29.7 pg (27.0-33.0); Mean Corpuscular Volume 94.2 fL (80.0-98.0); Mean Platelet Volume 9.9 fL (9.4-12.3); Monocytes Absolute Auto 0.4 X10*3/uL (0.1-1.2); Monocytes Percent Auto 6.4 % (2-11); Neutrophils Absolute Auto 4.8 x10*3/uL (2.0-8.3); Neutrophils Percent Auto 72.7 % (45-73); Platelet Count 126 X10*3/uL (160-400); Red Cell Distribution Width 14.8 % (11.0-16.0); White Blood Count 6.6 X10*3/uL (4.8-10.8)
[2021-09-11 06:43] LABS: Anion Gap 9 (12-20); Blood Urea Nitrogen 15 mg/dL (9-16); Calcium 8.3 mg/dL (8.4-10.2); Carbon Dioxide 32 mmol/L (22-29); Chloride 104 mmol/L (96-108); Creatinine Clr Calc Pharmacy 59.9; Estimated Glomerular Filt Rate 52; Glucose Fasting 105 mg/dL (60-99); Potassium 4.2 mmol/L (3.3-5.1); Sodium 141 mmol/L (135-145)
[2021-09-11] MEDS: Aspirin 325 MG TABLET PO (06:56)
[2021-09-11] MEDS: oxyCODONE HCl ER 10 MG TAB.ER.12H PO (06:56)
[2021-09-11] MEDS: Celecoxib 200 MG CAPSULE PO (06:56)
[2021-09-11] MEDS: Docusate Sodium 100 MG CAPSULE PO (06:57)
[2021-09-11 08:00] VITALS: BP 123/77; PULSE 88; RESP 18; TEMP 36.4; O2SAT 93
--- NOTE | 2021-09-11 08:06 | P.DS_ITS ---
DS: Providers Provider Date of Service: 09/11/21 Date of admission: 09/09/21 11:29 Primary care physician: Lynda Jacobsen MD Consults: 09/09/21 17:16 Consult to Hospitalist Routine Consulting Provider: Hospitalist Reason For Exam: post op RT YENNY- h/o aneurysm,. murmur DS: Diagnosis Discharge Diagnosis (1) History of total right hip replacement: Status: Acute DS: Summary Hospital Course Hospital Course: The patient underwent a successful right total hip arthroplasty, was transferred to PACU and then to the floor to recover. During their stay, their vitals were stable, afebrile at 97.5 . Labs were unremarkable, H/H 9.2/29.2. POD 1 she was started on ASA for DVT ppx, they also received services twice a day. Prior to discharge, their dressing was change, incision clean dry and intact, new Aquacel dressing applied and the plan was to be discharged home with VNA Time Spent with Patient Time attestation: Total time spent providing and/or coordinating discharge services: Discharge coordination time: Less than 30 minutes Quality: Stroke Does the patient have a stroke diagnosis?: No Physical Exam Verdana 4l Vital Signs: Verdana 4d Verdana 4d Vital Signs: Verdana 4d Verdana 4Bd Last Vital Signs Verdana 4d Military Administrative Technician New 4d Military Administrative Technician New 4d Temp 97.5 F 09/11/21 08:00 Military Administrative Technician New 4d Pulse 88 09/11/21 08:00 Military Administrative Technician New 4d Resp 18 09/11/21 08:00 BP 123/77 09/11/21 08:00 Pulse Ox 93 09/11/21 08:00 BMI result Body Mass Index 29.7 Const: General: cooperative, healthy appearing and no acute distress Resp: Effort & Inspection: normal respiratory effort and able to speak in complete sentences Cardio: Rate: regular rate Peripheral pulses: Peripheral pulses 2+ throughout GI: Palpation (GI): Soft to palpation Skin: General skin exam: no rashes or lesions noted Extrem: Other: incision clean dry and intact. Sofia intact. No erythema or effusion. Calf supple nontender. Neurovascularly intact. DS: Data Data Completed and Pending Pending studies at discharge: Pending at discharge 09/09/21 13:51 Surgical [PTH] Routine Labs on day of discharge: Laboratory Results - last 24 hr 09/11/21 09/11/21 05:25 06:00 WBC 6.6 RBC 3.10 L Hgb 9.2 L Hct 29.2 L MCV 94.2 MCH 29.7 MCHC 31.5 RDW 14.8 Plt Count 126 L MPV 9.9 Immature Gran % (Auto) 0.5 H Neut % (Auto) 72.7 Lymph % (Auto) 19.0 L [place] % (Auto) 6.4 Eos % (Auto) 1.1 Baso % (Auto) 0.3 Lymph # (Auto) 1.3 [place] # (Auto) 0.4 Eos # (Auto) 0.1 Baso # (Auto) 0.0 Abs Immat Gran (auto) 0.03 Absolute Neuts (auto) 4.8 Absolute Nucleated RBC 0.000 Nucleated RBC % (auto) 0.0 Sodium 141 Potassium 4.2 Chloride 104 Carbon Dioxide 32 H Anion Gap 9 L BUN 15 Creatinine 1.09 Estim Creat Clear Calc 59.9 Estimated GFR 52 Fasting Glucose 105 H Calcium 8.3 L Discharge Plan Discharge Patient Disposition: Home Health Service Discharge Diagnosis: s/p RT YENNY Referrals: Taya Goodson PA-C [Physician Speech Pathology Supervisor] - 10/24/21 12:45 pm (09/26/21 12:45 [facility] Taya Goodson PA-C) Discharge Medications: New docusate sodium 100 mg Capsule 100 mg PO BID 14 Days Qty: 28 0RF oxycodone 10 mg tablet 10 mg PO Q4H PRN (Reason: Pain, Moderate (Pain Scale 4-6) 7 Days Qty: 42 0RF celecoxib 200 mg Capsule 200 mg PO BID 30 Days Qty: 60 0RF acetaminophen 325 mg Tablet 650 mg PO Q6H PRN (Reason: Pain, Mild (Pain Scale 1-3)) 30 Days Qty: 240 0RF aspirin 325 mg Tablet 325 mg PO BID 42 Days Qty: 84 0RF Continued (DME) karel Jamisonc See Rx Instructions .MEDSUPPLY Qty: 1 0RF Rx Instructions: Carmen Front wheeled walker quetiapine 25 mg tablet 2 tab PO BEDTIME PRN (Reason: Anxiety) 0RF cetirizine 10 mg tablet 1 tab PO DAILY 0RF triamterene-hydrochlorothiazid 37.5-25 mg capsule 1 cap PO DAILY 0RF buspirone 30 mg tablet 1 tab PO DAILY 0RF escitalopram oxalate 20 mg tablet 1 tab PO DAILY 0RF alprazolam [Xanax] 0.25 mg tablet 0.25 mg PO DAILY 0RF lisinopril 40 mg tablet 40 mg PO DAILY 0RF Discharge Orders: Discharge Order (Routine); Ordered 09/11/21 Ordered By: Aniceto Evans Diet: regular diet Activity on Discharge: Use cane or walker Stand Alone Forms: Patient Portal Discharge page Care Plan Goals: Restore function of joint Health Concerns: none Plan of Treatment: Physical Therapy Pain management DVT prophylaxis Assessment: * Physical Therapy for Total hip arthroplasty: posterior precautions, gait training, ROM, strength * Limit stair climbing * No showering, no tub bath-keep dressing clean, dry and intact * No driving x6 weeks * ContinueAspirin twice a day x 6 weeks * Follow up with [facility] [place] 2 weeks
--- NOTE | 2021-09-11 08:07 | W.MHC.F2F ---
Service Date Service Date: 09/11/21 Encounter Date of encounter: 09/11/21 Reasons for Services Signs and symptoms assessed: Right hip pain, weakness, unsteady gait Reason for physical therapy: home safety and mobility, therapeutic exercises, restore joint function, gait/transfer training, ADL training and energy conservation Reason for occupational therapy: home safety and mobility, therapeutic exercises, restore joint function, gait/transfer training, ADL training and energy conservation Overseeing Care: Magnus Abarca Homebound: Leaving the home is medically contraindicated at this time without the asist of a device and/or another person due th the listed conditions above and below. Reason homebound: unsteady gait / fall risk, leg weakness, pain with ambulation, poor balance / fall risk and unable to drive Homebound supporting statement: Pt. is considered home bound due to recent surgery. Unable to drive, poor balance, poor gait mechanics. Certification: Based on the above findings, I certify that this patient is confined to the home and needs intermittent penitentiary care, physical therapy and/or speech therapy, or continues to need occupational therapy. The patient is under my care, and I have initiated the establishment of the plan of care. The patient will be followed by a physician who will periodically review the plan of care.
[2021-09-11 08:38] VITALS: BP 123/77; PULSE 88; O2SAT 93
--- NOTE | 2021-09-11 08:48 | MHC.CM.PN ---
PT DISCHARGING HOME W/[facility] FOR HOME PT AND FAMILY FOR TRANSPORT.
== END 2021-09-11 10:24 | disposition home health service (06) | DRG 324 ==
LOC: HO.SSSA 11:46 → HO.S3 13:38
PROVIDERS: Physician Assistant; Admitting Provider Orthopaedic Surgery; PCP Student in an Organized Health Care Education/Training Program; Visit Provider Orthopaedic Surgery
PROC: 0SR903A Replacement of Right Hip Joint with Ceramic Synthetic Substitute, Uncemented, Open Approach (ICD-10-PCS; CPT 27130; principal; 2021-09-09 12:20)
DX: M16.11 Unilateral primary osteoarthritis, right hip (principal); I10 Essential (primary) hypertension; Z20.822 Contact with and (suspected) exposure to COVID-19; Z87.891 Personal history of nicotine dependence; Z79.899 Other long term (current) drug therapy
CPT/HCPCS: 36415; 72170; 80048; 80051; 82565; 84520; 85025; 86850; 86900; 86901; 87635; 87640; 87641; 88304; 88311; 97110; 97116; 97162; 97165; 97535; C1776; J0131; J0690; J1100; J1170; J2250; J2405; J3010

== ENCOUNTER → 2021-09-26 12:38 | Outpatient (BNVA) | payer MEDICAID, SELFPAY | PROVIDERS: PCP Student in an Organized Health Care Education/Training Program; Visit Provider Physician Assistant | DX: Z47.1 Aftercare following joint replacement surgery (principal); Z96.641 Presence of right artificial hip joint | CPT/HCPCS: 99212 ==

== ENCOUNTER 2021-11-28 08:43 | Outpatient (REF) | payer MEDICAID, SELFPAY ==
--- NOTE | ~2021-11-28 | XR_ITS ---
EXAMINATION: XR HIP, RIGHT CLINICAL INFORMATION: Pain. COMPARISON: Radiograph of the pelvis dated from 09/09/2021. TECHNIQUE: Two views of the right hip. FINDINGS: Prosthetic components of the right total hip arthroplasty are appropriately aligned without periprosthetic fracture or abnormal lucency. No component migration. Soft tissues are normal. XR/XR hip RT w PEL1V IMPRESSION: Appropriate alignment of the right total hip arthroplasty without surrounding abnormalities.
== END 2021-11-28 08:44 | disposition home or self-care (01) ==
LOC: HO.HOSX 08:43
PROVIDERS: Visit Provider Physician Assistant
DX: Z47.1 Aftercare following joint replacement surgery (principal); Z96.641 Presence of right artificial hip joint
CPT/HCPCS: 73502; 99212

== ENCOUNTER 2021-11-28 16:00 | Outpatient (RCR) | payer MEDICAID, SELFPAY ==
--- NOTE | 2021-09-26 16:38 | MHC.PT.EP ---
[facility] [place] Office [place] Office [place] Office [address] Marcy Greenberg [address] [phone] F: [phone] F: [phone] F: [phone] F: [phone] Physical Therapy Plan of Care Date of Evaluation: Date of Surgery: 09/09/21 Diagnosis: S/P RIGHT THR Assessment: 56 YO FEMALE REF TO PT S/P Rt THR, POSTERIOR ON 09/09/21 (HOME PT THRU 09/25/21) - SHE IS CURRENTLY AMB W A W/W, SHE RESIDES W HER SPOUSE IN A DUPLEX APT- HER NEMO WERE REMOVED 09/26/21. OBJECTIVE FINDINGS: HEALING INCISION Rt LAT HIP, ROM DEFICITS IN TRUNK/ HIP/ EXT/ ANKLE; MUSCLE/ SOFT TISSUE IMBALANCE, PAIN IN Rt HIP AREA INTERMITTENT ,AND WEAKNESS IN HER PROX LEs/ CORE REGION. FUNCTIONAL LIMITIATIONS INCLUDE DIFFIC W INCR AMB, STANDING, SLEEPING- SHE DEMON INCR UEs EFFORT W TRANSFERS AND COMPENSATORY GAIT. Pt IS A GOOD PT CANDIDATE S/P THR TO REINFORCE PRECAUTIONS, ADDRESS THE ABOVE FINDINGS AND SOFT TISSUE IMBALANCE , WELL DEV A HEP AND GUIDING Pt TO IMPROVE HER FUNCTIONAL INDEP IN HER POST OP COURSE . Frequency and Duration: The patient will be seen 2x WK x 5 WKS Short Term Goals: Pt DEMON IMPROVED CARRYOVER W Rt POSTERIOR APPROACH THR PRECAUTIONS IN 1 WK Pt'S Rt HIP PAIN DECREASED TO 2-3/10 IN 2 WKS Pt DEMON WFL AROM HIP EXT AND ANKLE DF/PF IN 3 WKS Pt DEMO IMPROVED GAIT MECH W LEAST RESTRICTIVE AD ON LEVEL GROUND AND STAIRS IN 2 WKS Fci Goals: Pt INDEP W HEP PROGRESSION AND SELF-SX MGMT STRATEGIES IN 5 WKS Pt RESUME REG ADLs EVIDENT W IMPROVED LEFI SCORE BY 8-10 POINTS (AT EVAL 16/80 ) IN 5 WKS Pt INCR LE STRENGTH BY 1 GRADE IN 5 WKS Treatment Plan: Modalities to reduce pain, spasms and effusion. Manual therapy to restore motion and function. Therapeutic exercise to improve strength and flexibility. Neuromuscular re-education for posture and balance. Therapeutic activities to return to functional activities of daily living. Electronically signed by: Kiah Morgan PT Please sign and return to therapist. Thank you for your referral.
--- NOTE | 2021-12-17 10:23 | MHC.PT.DC ---
[facility] [place] Office [place] Office [place] Office [address] Marcy Greenberg [address] [phone] F: [phone] F: [phone] F: [phone] F: [phone] Physical Therapy Discharge Report Diagnosis: S/P RIGHT THR Date of Surgery: 09/09/21 Date of Evaluation: 09/26/21 Date of Discharge: 12/17/21 Treatments to Date: 4 Cancellations to Date: 7 No Shows to Date: 2 Discharge Status: Improved Function Visit Non-compliance Discharge Summary: Despite our attempts to assist the pt w transportation, she has had decreased attendance for sched PT appts, see grid above- pt is indep w HEP thus far and will cont, she notes she has been incr her walking and does her HEP 3 X wk. She denies pain at this time and is discharged from PT due to poor compliance w scheduled appts. Electronically signed by: Kiah Morgan,PT Please sign and return to therapist. Thank you for your referral.
== END 2021-12-17 10:24 | disposition home or self-care (01) ==
LOC: HO.PT 16:00
PROVIDERS: PCP Student in an Organized Health Care Education/Training Program; Visit Provider Physician Assistant
DX: Z98.890 Other specified postprocedural states (principal)
CPT/HCPCS: 97110; 97162; 97530

== ENCOUNTER → 2022-01-22 11:14 | Outpatient (BNVA) | payer MEDICAID, SELFPAY | PROVIDERS: Visit Provider Physician Assistant | DX: Z47.1 Aftercare following joint replacement surgery (principal); Z96.641 Presence of right artificial hip joint | CPT/HCPCS: 99212 ==

== ENCOUNTER → 2022-02-18 08:51 | Outpatient (BNVA) | payer MEDICAID, SELFPAY | PROVIDERS: PCP Student in an Organized Health Care Education/Training Program; Visit Provider Psychiatry & Neurology Neurology | DX: R41.3 Other amnesia (principal); R26.9 Unspecified abnormalities of gait and mobility; R25.8 Other abnormal involuntary movements; R06.83 Snoring; G47.10 Hypersomnia, unspecified; I10 Essential (primary) hypertension; Z79.82 Long term (current) use of aspirin | CPT/HCPCS: 99202 ==

== ENCOUNTER 2022-03-26 16:34 | Outpatient (REF) | payer MEDICAID, SELFPAY ==
--- NOTE | ~2022-03-26 | MR_ITS ---
EXAMINATION: MR BRAIN WITHOUT CONTRAST CLINICAL INFORMATION: Memory loss. COMPARISON: Head CT dated 06/23/2017. TECHNIQUE: Multiplanar, multisequence imaging of the brain was performed without contrast. FINDINGS: No diffusion abnormalities are identified to suggest an acute infarct. The ventricles are normal in size. No mass effect or midline shift is seen. Minimal nonspecific scattered white matter signal changes may be due to chronic microangiopathy. No extra-axial fluid collections are seen. The brainstem and cerebellum are normal. There is susceptibility artifact at the left MCA bifurcation corresponding to embolization material. The gradient refocused acquisition demonstrates no pathologic magnetic susceptibility artifact to indicate underlying acute or chronic blood products. The craniovertebral junction, marrow signal, and midline structures are normal. The major intracranial flow voids at the level of the [place] of [place] are preserved. The dural venous sinus flow voids are maintained. The mastoid air cells and paranasal sinuses are well aerated. There is moderate multilevel facet arthrosis. Moderate disc space narrowing with chronic endplate changes partially visualized on the sagittal T1-weighted acquisition at the C4-C5 and C5-C6 levels with a reversal of the normal cervical lordosis. MR/MR head/brain wo con IMPRESSION: No acute intracranial process. Nonspecific mild white matter signal changes which may be due to chronic microangiopathy.
== END 2022-03-26 16:35 | disposition home or self-care (01) ==
LOC: HO.MRI 16:34
PROVIDERS: Visit Provider Psychiatry & Neurology Neurology
DX: R41.3 Other amnesia (principal); R26.9 Unspecified abnormalities of gait and mobility
CPT/HCPCS: 70551

== ENCOUNTER 2022-08-21 11:58 | Outpatient (REF) | payer MEDICAID, SELFPAY | END 2022-08-21 11:59 | disposition home or self-care (01) | LOC: HO.HOSX 11:58 | PROVIDERS: Visit Provider Orthopaedic Surgery | DX: Z13.89 Encounter for screening for other disorder (principal) ==

== ENCOUNTER 2024-12-01 13:47 | Outpatient (REF) | payer MEDICAID, SELFPAY ==
--- OUTSIDE RECORDS SUMMARY | 2024-12-01 16:50 | XMS_ITS | Encounter Summary ---
Author Organization [employer] Address [address] [place] [address] Care Team Providers Care Tube Sizer Operator Name Role Phone Lynda Jacobsen MD Primary Care Provider [phone] Reason for Visit * Reason Comments Med Refill Encounter Details Date Type Department Care Team ([facility] Contact Info) Description 11/22/2024 Refill [facility] MED & PEDS [address] [place] [address] Lynda Jacobsen MD [address] [place] [address] Social History Tobacco Use Types Packs/Day Years Used Date Smoking Tobacco: Never Assessed Comments Unknown Sex and Gender Information Value Date Recorded Sex Assigned at Female 06/16/2022 10:22 AM EDT Legal Sex Female 10:22 AM EDT Gender Identity Female 06/16/2022 10:22 AM EDT Sexual Orientation Don't know 06/16/2022 10 :22 AM EDT documented as of this encounter Plan of Treatment Upcoming Encounters Date Type Department Care Team (Late Contact Info) Description 02/07/2025 10:45 AM EDT Office Visit [facility] CHC MED & PEDS [address] [place] [address] Lynda Jacobsen MD [address] [place] [address] documented as of this encounter Visit Diagnoses Not on filedocumented in this encounter Care Teams Tube Sizer Operator Relationship Specialty Start Date End Date Lynda Jacobsen MD [address] [place] [address] PCP - General Family Medicine 08/23/13 documented as of this encounter
--- OUTSIDE RECORDS SUMMARY | 2024-12-01 16:50 | XMS_ITS | Encounter Summary ---
Author Organization [employer] Address [address] [place] [address] [address] [place] [address] Care Team Providers Care Hat Cone Inspector Name Role Phone Lynda Jacobsen MD Primary Care Provider [phone] Reason for Visit * Reason Onset Date Comments Walk-In 12/01/2024 Med Refill 12/01/2024 Encounter Details Date Type Department Care Team ([facility] st Contact Info) Description 12/01/2024 Telephone [facility] MED & PEDS [address] [place], [place] [phone] Lynda Jacobsen MD [address] [place] [address] Walk-In; Med Refill Social History Tobacco Use Types Packs/Day Years Used Date Smoking Tobacco: Never Assessed Comments Unknown Sex and Gender Information Value Date Recorded Sex Assigned at Female 06/16/2022 10:22 AM EDT Legal Sex Female 10:22 AM EDT Gender Identity Female 06/16/2022 10:22 AM EDT Sexual Orientation Don't know 06/16/2022 10 :22 AM EDT documented as of this encounter Miscellaneous Notes * Telephone Encounter - Rylee Mejia RN - 12/01/2024 9:42 AM EDT Patient walked in requesting a refill on BP meds. RN explained to patient that she has not been seen since 2022, and she would need to re-establish care with [facility], and have a BP check to make sure medication was at the correct dose. Patient was reluctant to take offered appointment in same day care at 1:20 due to transportation. Uber offered to patient. Plan is to have patient return for 1:20 appointment and if partner needs to leave, then we will get an Uber for ride home. Patient agreed with this plan. documented in this encounter Plan of Treatment Upcoming Encounters Date Type Department Care Team (Late st Contact Info) Description 02/07/2025 10:45 AM EDT Office Visit [facility] CHC MED & PEDS [address] [place], [place] [phone] Lynda Jacobsen MD [address] [place] [address] documented as of this encounter Visit Diagnoses Not on filedocumented in this encounter Care Teams Hat Cone Inspector Relationship Specialty Start Date End Date Lynda Jacobsen MD [address] [place] [id number] PCP - General Family Medicine 08/23/13 documented as of this encounter
--- OUTSIDE RECORDS SUMMARY | 2024-12-01 16:50 | XMS_ITS | Clinical Summary ---
Author Organization [employer] Address [address] [place] [address] [address] [place] [address] Care Team Providers Care Outpatient Scheduler Name Role Phone Lynda Jacobsen MD Primary Care Provider Allergies No known active allergies Medications omeprazole (PriLOSEC) [address] capsule TAKE ONE CAPSULE BY MOUTH EVERY DAY 08/25/19 23 Active loratadine (Claritin) 10 MG tabletIndicatio ns:Seasonal allergies Take 1 tablet (10 mg) by mouth Once per day. 30 tablet 11 12/02/19 25 026 Active cyanocobalamin (Vitamin B-12) 1000 MCG tabletIndicatio ns:Vitamin B12 deficiency Take 1 tablet (1,000 mcg) by mouth in the morning. 90 tablet 1 12/02/19 25 Active lisinopril 40 MG tabletIndicatio ns:Primary hypertension Take 1 tablet (40 mg) by mouth in the morning. 90 tablet 1 12/02/19 25 Active omeprazole (PriLOSEC) [address] capsuleIndicati ons:Chronic superficial gastritis without bleeding Take 1 capsule (20 mg) by mouth if needed each day (reflux). Do not crush or chew. 90 capsule 1 12/02/19 25 Active triamterene-hyd roCHLOROthiazid e (Dyazide) 37.5-25 MG capsuleIndicati ons:Primary hypertension Take 1 capsule by mouth in the morning. 90 capsule 1 12/02/19 25 Active acetic acid-hydrocorti sone (Vosol-HC) otic solutionIndicat ions:Acute otitis externa of right ear, unspecified type Administer 4 drops into the right ear 2 times daily for 10 days. 10 mL 12/02/19 25 025 Active cetirizine (ZyrTEC) 10 MG tabletIndicatio ns:Seasonal allergies Take 1 tablet (10 mg) by mouth in the morning. 30 tablet 23 07/30/20 22 025 Discontinued omeprazole (PriLOSEC) [address] capsuleIndicati ons:Chronic superficial gastritis without bleeding TAKE ONE CAPSULE BY MOUTH EVERY DAY 90 capsule 1 09/21/19 24 025 Discontinued(R eorder (will not trigger notification to Pharmacy)) cyanocobalamin (Vitamin B-12) 1000 MCG tablet TAKE ONE TABLET BY MOUTH EVERY MORNING 90 tablet 1 05/24/20 24 025 Discontinued(R eorder (will not trigger notification to Pharmacy)) triamterene-hyd roCHLOROthiazid e (Dyazide) 37.5-25 MG capsuleIndicati ons:Primary hypertension TAKE ONE CAPSULE EVERY MORNING 90 capsule 08/24/19 25 025 Discontinued(R eorder (will not trigger notification to Pharmacy)) lisinopril 40 MG tabletIndicatio ns:Primary hypertension TAKE ONE TABLET EVERY MORNING 90 tablet 08/24/19 25 025 Discontinued(R eorder (will not trigger notification to Pharmacy)) Active Problems Problem Noted Date Diagnosed Date Benign hypertension 11/01/2013 Intracranial aneurysm 11/01/2013 Arthritis 11/01/2013 Encounters Date Type Department Care Team Description 12/01/2024 1:20 PM EDT Office Visit [facility] MED & PEDS [address] [place] [address] Felicia Oropeza MD Primary hypertension (Primary Dx); Seasonal allergies; Benign hypertension; Vitamin B12 deficiency; History of cerebral aneurysm repair; Acute otitis externa of right ear, unspecified type; Chronic superficial gastritis without bleeding; Gastroesophageal reflux disease, unspecified whether esophagitis present 12/01/2024 Travel 12/01/2024 Telephone [facility] MED & PEDS [address] [place] [address] Lynda Jacobsen MD Walk-In; Med Refill 11/22/2024 Refill [facility] MED & PEDS [address] [place] [address] Lynda Jacobsen MD from Last 3 Months Immunizations Name Administration Dates Next Due Tdap 12/20/2015,01/01/2009 Social History Tobacco Use Types Packs/Day Years Used Date Smoking Tobacco: Never Assessed Comments Unknown Sex and Gender Information Value Date Recorded Sex Assigned at Female 06/16/2022 10:22 AM EDT Legal Sex Female 10:22 AM EDT Gender Identity Female 06/16/2022 10:22 AM EDT Sexual Orientation Don't know 06/16/2022 10 :22 AM EDT Last Filed Vital Signs Vital Sign Reading Time Taken Comments Blood Pressure 151/83 12/01/2024 1:10 PM EDT Pulse 58 12/01/2024 1:10 PM EDT Temperature 37.1 ??C (98.7 ??F) 12/01/2024 1:10 PM ED T Respiratory Rate 18 12/01/2024 1:10 PM EDT Oxygen Saturation 97% 12/01/2024 1:10 PM EDT Inhaled Oxygen Concentration - - Weight 92.1 kg (203 lb) 12/01/2024 1:10 PM EDT Height 165.1 cm (5' 5 ) 12/01/2024 1:10 PM EDT Body Mass Index 33.78 12/01/2024 1:10 PM EDT Plan of Treatment Upcoming Encounters Date Type Department Care Team (Late st Contact Info) Description 02/07/2025 10:45 AM EDT Office Visit [facility] CHC MED & PEDS [address] [place] [address] Lynda Jacobsen MD [address] [place] [address] Health Maintenance Due Date Last Done Comments CT Colonography 1964 Colonoscopy 1964 Colorectal Cancer Screening 1964 Depression Screening 1964 FIT DNA/Cologuard 1964 FIT 1964 FOBT 1964 HIV Screening 1964 Lipid Panel 1964 SDOH Screening 1964 Sigmoidoscopy 1964 Alcohol/Substance Use Screening 1976 Tobacco Screening 1976 Hepatitis C Screening 1982 Pap Smear 1985 Cervical Cancer Screening 1994 HPV/Cotest 1994 Mammogram 2004 Pneumococcal Vaccine: 50+ Years (1 of 1 - PCV) 2014 Zoster Vaccines (1 of 2) 2014 COVID-19 Vaccine (3 - 2023-2 5 season) 2024 08/16/2021, 07/05/2021 Influenza Vaccine (#1) 2024 DTaP/Tdap/Td Vaccines (3 - T d or Tdap) 12/19/2025 12/20/2015, 01/01/2009 RSV Patients and Patients Aged 60 years or older (1 - 1-dose 75+ series) 2039 HIB Vaccines Aged Out No longer eligi ble based on patient's age to complete this topic HPV Vaccines Aged Out No longer eligi ble based on patient's age to complete this topic Hepatitis A Vaccines Aged Out No long er eligible based on patient's age to complete this topic Hepatitis B Vaccines Aged Out No long er eligible based on patient's age to complete this topic IPV Vaccines Aged Out No longer eligi ble based on patient's age to complete this topic Meningococcal Vaccine Aged Out No irene alejandra eligible based on patient's age to complete this topic RSV under 20 months Aged Out No longe r eligible based on patient's age to complete this topic Rotavirus Vaccines Aged Out No longer eligible based on patient's age to complete this topic Insurance [place] [address] [place] [id number] [facility] Care Teams Outpatient Scheduler Relationship Specialty Start Date End Date Lynda Jacobsen MD [address] [place] [id number] PCP - General Family Medicine 08/23/13
--- OUTSIDE RECORDS SUMMARY | 2024-12-01 16:50 | XMS_ITS | Encounter Summary ---
Author Organization [employer] Address [address] [place] [address] [address], [place] [address] Care Team Providers Care Traffic Enumerator Name Role Phone Lynda Jacobsen MD Primary Care Provider [phone] Encounter Details Date Type Department Care Team (Late st Contact Info) Description 08/29/2022 Orders Only [facility] MED & PEDS [address] [place] [address] Kimberly Harden LPN Social History Tobacco Use Types Packs/Day Years [...] Description 02/07/2025 10:45 AM EDT Office Visit [facility] MED & PEDS [address] [place] [address] Lynda Jacobsen MD [address] [place] [address] documented as of this encounter Visit Diagnoses Not on filedocumented in this encounter Care Teams Traffic Enumerator Relationship Specialty Start Date End Date Lynda Jacobsen MD [address] [place] [id number] PCP - General Family Medicine 08/23/13 documented as of this encounter
--- OUTSIDE RECORDS SUMMARY | 2024-12-01 16:50 | XMS_ITS | Encounter Summary ---
Author Organization [employer] Address [address] [place] [address] Care Team Providers Care Multimedia Editor Name Role Phone Lynda Jacobsen MD Primary Care Provider [phone] Reason for Visit * Reason Comments Med Refill Encounter Details Date Type Department Care Team ([facility] Contact Info) Description 03/21/2024 Refill [facility] MED & PEDS [address] [place] [address] Analy Domingo MD [address] [place] [address] Chronic superficial gastritis without bleeding Social History Tobacco Use Types Packs/Day Years [...] Description 02/07/2025 10:45 AM EDT Office Visit [facility] MED & PEDS [address] [place], [place] [phone] Lynda Jacobsen MD [address] [place], [place] [phone] documented as of this encounter Visit Diagnoses Diagnosis Chronic superficial gastritis without bleeding documented in this encounter Care Teams Multimedia Editor Relationship Specialty Start Date End Date Lynda Jacobsen MD [address] [place] [id number] PCP - General Family Medicine 08/23/13 documented as of this encounter
--- OUTSIDE RECORDS SUMMARY | 2024-12-01 16:50 | XMS_ITS | Encounter Summary ---
Author Organization [employer] Address [address] [place] [address] [address] [place] [address] Care Team Providers Care Estate Planning Paralegal Name Role Phone Lynda Jacobsen MD Primary Care Provider [phone] Encounter Details Date Type Department Care Team ([facility] st Contact Info) Description 12/01/2024 1:20 PM EDT Office Visit [facility] CHC MED & PEDS [address] [place], [place] [phone] Felicia Oropeza MD [address] [place] [address] Primary hypertension (Primary Dx); Seasonal allergies; Benign hypertension; Vitamin B12 deficiency; History of cerebral aneurysm repair; Acute otitis externa of right ear, unspecified type; Chronic superficial gastritis without bleeding; Gastroesophageal reflux disease, unspecified whether esophagitis present Social History Tobacco Use Types Packs/Day Years Used Date Smoking Tobacco: Never Assessed Comments Unknown Sex and Gender Information Value Date Recorded Sex Assigned at Female 06/16/2022 10:22 AM EDT Legal Sex Female 10:22 AM EDT Gender Identity Female 06/16/2022 10:22 AM EDT Sexual Orientation Don't know 06/16/2022 10 :22 AM EDT documented as of this encounter Last Filed Vital Signs Vital Sign Reading [...] Mass Index 33.78 12/01/2024 1:10 PM EDT documented in this encounter Progress Notes * Felicia Oropeza MD - 12/01/2024 1:20 PM EDT Subjective Patient ID: Mary Black is a 59 y.o. female who presents for high blood pressure meds. HPI Mary is a long-time patient of Dr. Jacobsen's who is here today because she ran out of blood pressure medications, as well as many other chronic medications, 3 days ago. She requested refills but since she has not been seen in the clinic for a few years, Dr. Jacobsen recommended she come in for evaluation prior to renewing the medication prescriptions. Mary reports that she has a history of a cerebral aneurysm that was clipped at [facility] more than 15 years ago. She follows with Neurosurgery there and takes aspirin 325 mg daily per their recommendations. She also has high blood pressure and ran out of her meds 3 days ago. Since then has noticed swelling in both legs, right more than left, which is typical for her. Does not pay attention to the sodium content in her food and eats a lot of prepared foods. Other than the swelling in herlegs and under her eyes, denies any shortness of breath, palpitations, chest pain, PND or orthopnea. Also concerned about some itching in her right ear for the past few days. Does not swim regularly except in the summer. Review of Systems Constitutional: Negative for chills and fever. HENT: Negative for ear discharge and ear pain. Right ear itching Respiratory: Negative for cough and shortness of breath. Cardiovascular: Positive for leg swelling. Negative for chest pain and palpitations. Allergic/Immunologic: Positive for environmental allergies. Neurological: Positive for headaches (mild posterior headache x 2 days). Objective BP (!) 151/83 (BP Location: Left arm, Patient Position: Sitting, BP Cuff Size: Large adult) Pulse58 Temp 98.7 ??F (37.1 ??C) (Oral) Resp 18 Ht 5' 5 (1.651 m) Wt 203 lb (92.1 kg) SpO2 97% BMI 33.78 kg/m?? Physical Exam Constitutional: Appearance: She is not toxic-appearing. HENT: Head: Normocephalic and atraumatic. Right Ear: Tympanic membrane normal. Swelling (and erythema of canal) present. Mouth/Throat: Mouth: Mucous membranes are moist. Comments: Edentulous Eyes: General: No scleral icterus. Conjunctiva/sclera: Conjunctivae normal. Pupils: Pupils are equal, round, and reactive to light. Comments: Infraorbital puffiness bilaterally Cardiovascular: Rate and Rhythm: Normal rate and regular rhythm. Pulses: Normal pulses. Heart sounds: Murmur (1/6 KURT at base) heard. Pulmonary: Effort: Pulmonary effort is normal. Breath sounds: Rales present. No wheezing. Musculoskeletal: Right lower leg: Edema (3+) present. Left lower leg: Left lower leg edema: 2+. Skin: Capillary Refill: Capillary refill takes less than 2 seconds. Neurological: General: No focal deficit present. Mental Status: She is alert. Psychiatric: Mood and Affect: Mood normal. Behavior: Behavior normal. Assessment/Plan Primary hypertension: BP high today at 151/83. Weight is up as well by 40+ pounds since start of the pandemic. She has considerable swelling in her ankles and under her eyes, and eats a lot of prepared foods, most of which contain high levels of sodium. Recommended that she try to limit her sodium intake to 1600 mg/day by reading the packages. Also recommended evaluation of renal function and electrolytes today, as well as UA and she agreed. Will send refills of her Rx but will change those Rx if needed based on lab results. Did not check her lipids because she had lasagna right before comingto this appointment. - Comprehensive Metabolic Panel; Future - Urinalysis with reflex microscopic; Future - lisinopril 40 MG tablet; Take 1 tablet (40 mg) by mouth in the morning. - triamterene-hydroCHLOROthiazide (Dyazide) 37.5-25 MG capsule; Take 1 capsule by mouth in the morning. History of cerebral aneurysm repair: Follows with Neurosurgery and takes aspirin daily. For this reason, it is very important she keep her BP well controlled. Acute otitis externa of right ear, unspecified type - acetic acid-hydrocortisone (Vosol-HC) otic solution; Administer 4 drops into the right ear 2 times daily for 10 days. Seasonal allergies - loratadine (Claritin) 10 MG tablet; Take 1 tablet (10 mg) by mouth Once per day. Vitamin B12 deficiency: Ran out a few days ago. No recent labs in her chart. Will recheck CBC and B12 level, and I will resend Rx for B12. - cyanocobalamin (Vitamin B-12) 1000 MCG tablet; Take 1 tablet (1,000 mcg) by mouth in the morning. GERD: Recommended only PRN use for the PPI. Send new Rx. - omeprazole (PriLOSEC) [address] capsule; Take 1 capsule (20 mg) by mouth if needed each day (reflux). Do not crush or chew. F/U with PCP in 2 mos. Future Appointments Date Time Provider Department Center 02/07/2025 10:45 AM Lynda Jacobsen MD [facility] documented in this encounter Plan of Treatment Upcoming Encounters Date Type Department Care Team (Late st Contact Info) Description 02/07/2025 10:45 AM EDT Office Visit [facility] MED & PEDS [address] [place] [address] Lynda Jacobsen MD [address] [place] [address] Scheduled Orders Name Type Priority Associated Diagnoses Orde r Schedule Comprehensive Metabolic Panel Lab Routine Benign hypertension Expected: 12/01/2024 (Approximate), Expires: 12/01/2025 Urinalysis with reflex microscopic Lab Routine Benign hypertension Expected: 12/01/2024, Expires: 12/01/2025 Vitamin B12/Folate, Serum Panel Lab Routine History of cerebral aneurysm repair Expected: 12/01/2024, Expires: 12/01/2025 CBC auto differential Lab Routine History of cerebral aneurysm repair Expected: 12/01/2024 (Approximate), Expires: 12/01/2025 documented as of this encounter Visit Diagnoses Diagnosis Primary hypertension- Primary Unspecified essential hypertension Seasonal allergies Allergic rhinitis, cause unspecified Benign hypertension Essential hypertension, benign Vitamin B12 deficiency Other B-complex deficiencies History of cerebral aneurysm repair Other postprocedural status Acute otitis externa of right ear, unspecified type Chronic superficial gastritis without bleeding Gastroesophageal reflux disease, unspecified whether esophagitis present documented in this encounter Care Teams Estate Planning Paralegal Relationship Specialty Start Date End Date Lynda Jacobsen MD [address] [place] [id number] PCP - General Family Medicine 08/23/13 documented as of this encounter
--- OUTSIDE RECORDS SUMMARY | 2024-12-01 16:50 | XMS_ITS | Encounter Summary ---
Author Organization [employer] Address [address] [place] [address] [address] [place] [address] Care Team Providers Care Biomass Facilitator Name Role Phone Lynda Jacobsen MD Primary Care Provider [phone] Encounter Details Date Type Department Care Team (Latest Contact Info) Description 12/01/2024 Travel Social History Tobacco Use Types Packs/Day Years [...] Description 02/07/2025 10:45 AM EDT Office Visit [facility] MED & PEDS [address] [place] [address] Lynda Jacobsen MD [address] [place] [address] documented as of this encounter Visit Diagnoses Not on filedocumented in this encounter Care Teams Biomass Facilitator Relationship Specialty Start Date End Date Lynda Jacobsen MD [address] [place] [address] PCP - General Family Medicine 08/23/13 documented as of this encounter
--- OUTSIDE RECORDS SUMMARY | 2024-12-01 16:50 | XMS_ITS | Clinical Summary ---
Author Organization [facility] Address [address] [place] [address] Care Team Providers Care Attorney General Name Role Phone Unavailable Primary Care Provider Unavailabl e Social History Tobacco Use Types Packs/Day Years Used Date Smoking Tobacco: Never Assessed Comments Unknown Sex and Gender Information Value Date Recorded Sex Assigned at Not on file Legal Sex Female 12:40 PM EDT Gender Identity Not on file Sexual Orientation Not on file Plan of Treatment Health Maintenance Due Date Last Done Comments Hepatitis C Virus Screening 1964 HIV Screening 1977 DTaP/Tdap/Td Vaccines (1 - Tdap) 1983 Pneumococcal Vaccines 50+ (1 of 1 - PCV) 2014 Zoster (Shingles) Vaccine (1 of 2) 2014 COVID-19 Vaccine ( - 2023-2 5 season) 2024 RSV Vaccine 60 years and old er and Patients (1 - 1-dose 75+ series) 2039 Hepatitis B Vaccines Aged Out No long er eligible based on patient's age to complete this topic Pneumococcal Vaccine: Pediat maureen (0-5 Years) and At-Risk Patients (6 to 49 Years) Aged Out No longer eligible b ased on patient's age to complete this topic
[2024-12-01 17:45] LABS: MANUAL DIFF FLAG NO
[2024-12-01 17:50] LABS: Basophils Percent Auto 0.6 % (0-2); Eosinophils Absolute Auto 0.1 X10*3/uL (0.0-0.4); Eosinophils Percent Auto 1.2 % (0-4); Hematocrit 38.2 % (37.0-47.0); Hemoglobin 12.7 g/dl (12.0-16.0); Imm Gran Abs Auto 0.06 X10*3/uL (0.00-0.03); Imm Gran Pct Auto 1.2 % (0.0-0.4); Lymphocytes Absolute Auto 1.4 X10*3/uL (1.2-4.9); Lymphocytes Percent Auto 28.7 % (20-40); Mean Corpuscular HGB Conc 33.2 g/dl (31.0-35.0); Mean Corpuscular Hemoglobin 30.5 pg (27.0-33.0); Mean Corpuscular Volume 91.6 fL (80.0-98.0); Mean Platelet Volume 10.1 fL (9.4-12.3); Monocytes Absolute Auto 0.3 X10*3/uL (0.1-1.2); Monocytes Percent Auto 5.3 % (2-11); Neutrophils Absolute Auto 3.1 x10*3/uL (2.0-8.3); Platelet Count 127 X10*3/uL (160-400); Red Blood Count 4.17 X10*6/uL (4.20-5.50); Red Cell Distribution Width 15.8 % (11.0-16.0); White Blood Count 4.9 X10*3/uL (4.8-10.8)
[2024-12-01 17:54] LABS: Appearance Urine Clear; Color Urine Yellow; Glucose Urine UA Negative (Negative); Leukocyte Esterase Urine Negative (Negative); Nitrite Urine Negative (Negative); PH 6.5 (5.0-9.0); Specific Gravity - Urine <= 1.005 (1.005-1.025); Urine Blood Negative (Negative); Urine Ketones Negative (Negative); Urine Protein Negative (Neg-Trace)
[2024-12-01 18:07] LABS: Alanine Aminotransferase 65 U/L (0-31); Albumin Level 3.7 g/dL (3.5-5.0); Anion Gap 12 (12-20); Aspartate Amino Transferase 47 U/L (5-31); Bilirubin Total 0.6 mg/dL (0.0-1.0); Blood Urea Nitrogen 9 mg/dL (9-16); Carbon Dioxide 25 mmol/L (22-29); Chloride 108 mmol/L (96-108); Estimated Glomerular Filt Rate 57; Glucose Random 103 mg/dL (60-115); Potassium 3.8 mmol/L (3.3-5.1); Sodium 141 mmol/L (135-145); Total Protein 6.8 g/dL (6.5-8.0)
[2024-12-01 18:12] LABS: Alkaline Phosphatase 59 U/L (39-117)
[2024-12-01 18:47] LABS: Folate 5.2 ng/mL (> or = 4.0); Vitamin B12 > 2000 pg/mL (200-900)
== END 2024-12-01 13:48 | disposition home or self-care (01) ==
LOC: HO.CHCLDS 13:47
PROVIDERS: Visit Provider Internal Medicine
DX: I10 Essential (primary) hypertension (principal); Z86.79 Personal history of other diseases of the circulatory system; Z98.890 Other specified postprocedural states
CPT/HCPCS: 36415; 80053; 81003; 82607; 82746; 85025